=== PATIENT | male | born 1950 | race African-American/Black ===

== ENCOUNTER 2024-07-06 13:00 | Emergency (ER) | payer OTHER ==
[~2024-07-06] VITALS: Ht 185.4 cm; Wt 146.0 kg
[2024-07-06 13:08] VITALS: O2SAT 97
[2024-07-06 13:15] VITALS: RESP 36
[2024-07-06] MEDS: IPRATROPIUM BROMIDE (0.02%) 0.5MG/2.5ML NEB HHN STA (13:49)
[2024-07-06] MEDS: ALBUTEROL (0.083%) 2.5MG/3ML NEB HHN SCH (13:49)
[2024-07-06] MEDS: METHYLPREDNISOLONE SOD SUCC 125MG/2ML (ACT-O-VIAL) IV STA (14:01)
[2024-07-06 14:17] LABS: HEMOGLOBIN. 13.4 g/dL (14.0-18.0); MEAN CORPUSCULAR HEMOGLOBIN 31.7 pg (28.0-32.0); MEAN CORPUSCULAR HGB CONC 31.8 g/dL (31.0-37.0); MEAN CORPUSCULAR VOLUME 99.6 fL (80.0-94.0); MEAN PLATELET VOLUME 9.9 fl (7.4-10.4); PLATELET 296 x1000/uL (130-400); RED BLOOD CELL COUNT 4.21 mill/uL (4.7-6.1); RED CELL DISTRIBUTION WIDTH 14.3 % (11.6-14.6); WHITE BLOOD COUNT 16.8 x1000/uL (4.5-11.0)
[2024-07-06 14:24] LABS: DIFFERENTIAL COMMENT 1
[2024-07-06 14:30] LABS: CHLORIDE 107 mEq/L (98-107); SODIUM 142 mEq/L (136-145)
[2024-07-06 14:31] LABS: CALCIUM 10.2 mg/dL (8.7-10.4); CARBON DIOXIDE 25 mEq/L (21-32)
[2024-07-06 14:32] LABS: BG BASE EXCESS -2.2 mmol/L (-2.0-3.0); BG CARBOXYHEMOGLOBIN 1.1 % (0.5-1.5); BG DEOXYHEMOGLOBIN 0.9 % (0.0-5.0); BG FRACTION INSPIRED OXYGEN 70; BG HCO3 ACT 22.6 mmol/L (21.0-28.0); BG METHEMOGLOBIN 0.3 % (0.5-1.5); BG OXYGEN SATURATION 99.1 % (94.0-98.0); BG OXYHEMOGLOBIN 97.7 % (94.0-98.0); BG PCO2 39.3 mmHg (35.0-48.0); BG PH 7.378 (7.350-7.450); BG PO2 197.4 mmHg (83.0-108.0); BG SAMPLE SITE LEFT RADIAL; BG TOTAL HEMOGLOBIN 13.6 g/dL (13.5-17.5); BG VENT MODE MASK - BIPAP-HHN INLINE
[2024-07-06 14:36] LABS: CREATININE 1.2 mg/dL (0.6-1.3); GLUCOSE 94 mg/dL (70-105); UREA NITROGEN BLOOD 24 mg/dL (9-23)
[2024-07-06 14:47] LABS: TROPONIN I HIGH SENSITIVITY 36 ng/L (3.0-53)
[2024-07-06] MEDS: CEFTRIAXONE 1GM/50ML 50 ML IV NR (16:57)
[2024-07-06 18:31] LABS: PLATELET ESTIMATE NORMAL
[2024-07-06 18:32] LABS: ANISOCYTOSIS 1+
[2024-07-06 20:00] VITALS: BP 140/87; PULSE 103; RESP 26; TEMP 36.78072; O2SAT 94
== END 2024-07-06 20:48 | disposition short-term general hospital (02) ==
LOC: ER 13:17 → EDBEDREQSVC 16:00 → ER 20:48
DX: R06.03 Acute respiratory distress (principal); I10 Essential (primary) hypertension; F19.90 Other psychoactive substance use, unspecified, uncomplicated; J44.89 Other specified chronic obstructive pulmonary disease
CPT/HCPCS: 99291; 94070; 96365; 96375; 80048; 83880; 85025; 84484; 36415; 71045; 82805; 82375; 94660; 94664; 93005; 98960; 36600; J0696; J2919; 94640